=== PATIENT | female | born 1950 | race Native Hawaiian/Other Pacific Islander ===

== ENCOUNTER 2016-07-04 10:59 | Outpatient (CLI) | payer OTHER | END 2016-07-04 19:15 | disposition home or self-care (01) | LOC: RESP 10:59 | DX: R06.02 Shortness of breath (principal) | CPT/HCPCS: 94664 ==

== ENCOUNTER 2016-09-19 12:45 | Outpatient (CLI) | payer OTHER | END 2016-09-19 14:00 | disposition home or self-care (01) | LOC: CT 12:45 | DX: J90 Pleural effusion, not elsewhere classified (principal) ==

== ENCOUNTER 2017-02-01 16:32 | Outpatient (CLI) | payer OTHER | END 2017-02-01 17:35 | disposition home or self-care (01) | LOC: RAD 16:32 | DX: M79.604 Pain in right leg (principal) ==

== ENCOUNTER 2017-03-30 13:06 | Outpatient (CLI) | payer OTHER | END 2017-03-30 19:00 | disposition home or self-care (01) | LOC: CT 13:06 | DX: R91.8 Other nonspecific abnormal finding of lung field (principal) | CPT/HCPCS: 36415; 82565; 84520; Q9963 ==

== ENCOUNTER 2017-10-22 15:16 | Outpatient (CLI) | payer OTHER | END 2017-10-22 23:08 | disposition home or self-care (01) | LOC: CT 15:16 | DX: J44.9 Chronic obstructive pulmonary disease, unspecified (principal); D84.8 Other specified immunodeficiencies; R91.8 Other nonspecific abnormal finding of lung field ==

== ENCOUNTER 2018-08-21 10:53 | Outpatient (CLI) | payer OTHER, MEDICARE | END 2018-08-21 19:11 | disposition home or self-care (01) | LOC: CT 10:53 | DX: J44.9 Chronic obstructive pulmonary disease, unspecified (principal); R91.1 Solitary pulmonary nodule ==

== ENCOUNTER 2019-07-01 13:34 | Emergency (ER) | payer OTHER, MEDICARE ==
[~2019-07-01] VITALS: Ht 165.1 cm; Wt 63.5 kg
[2019-07-01 13:58] VITALS: TEMP 98.1
[2019-07-01 15:21] VITALS: BP 148/84
== END 2019-07-01 15:22 | disposition home or self-care (01) ==
LOC: ED 13:34
DX: S39.82XA Other specified injuries of lower back, initial encounter (principal); M51.36 Other intervertebral disc degeneration, lumbar region; S70.02XA Contusion of left hip, initial encounter; S70.01XA Contusion of right hip, initial encounter; W10.9XXA Fall (on) (from) unspecified stairs and steps, initial encounter; Y92.098 Other place in other non-institutional residence as the place of occurrence of the external cause
CPT/HCPCS: 99283

== ENCOUNTER 2019-07-25 12:34 | Outpatient (CLI) | payer OTHER, MEDICARE | END 2019-07-25 19:54 | disposition home or self-care (01) | LOC: MRI 12:34 | DX: M54.5 Low back pain (principal) ==

== ENCOUNTER 2022-02-05 23:28 | Emergency (ER) | payer OTHER ==
[~2022-02-05] VITALS: Ht 165.1 cm; Wt 65.8 kg
[2022-02-06 02:30] VITALS: BP 153/84; TEMP 98.3
== END 2022-02-06 02:30 | disposition home or self-care (01) ==
LOC: ED 23:28
DX: S00.83XA Contusion of other part of head, initial encounter (principal); S50.812A Abrasion of left forearm, initial encounter; S50.811A Abrasion of right forearm, initial encounter; W18.09XA Striking against other object with subsequent fall, initial encounter; Y92.090 Kitchen in other non-institutional residence as the place of occurrence of the external cause
CPT/HCPCS: 90471; 90715; 99283

== ENCOUNTER 2022-12-17 14:41 | Emergency (ER) | payer OTHER ==
[~2022-12-17] VITALS: Ht 165.1 cm; Wt 70.8 kg
[2022-12-17 14:41] VITALS: TEMP 97.8
[2022-12-17 16:22] VITALS: BP 140/70
== END 2022-12-17 16:22 | disposition home or self-care (01) ==
LOC: ED 14:41
DX: S06.0X1A Concussion with loss of consciousness of 30 minutes or less, initial encounter (principal); S13.4XXA Sprain of ligaments of cervical spine, initial encounter; R40.2411 Glasgow coma scale score 13-15, in the field [EMT or ambulance]; W03.XXXA Other fall on same level due to collision with another person, initial encounter; Y93.89 Activity, other specified; Y92.511 Restaurant or cafe as the place of occurrence of the external cause; Y99.9 Unspecified external cause status
CPT/HCPCS: 99283